=== PATIENT | female | born 1950 | race Caucasian/White ===

== ENCOUNTER → 2021-04-23 12:36 | Outpatient (CLI) | payer MEDICARE, SELFPAY ==
--- NOTE | 2021-04-23 13:00 | MRI_ITS ---
STUDY: MRI THORACIC SPINE WITHOUT CONTRAST REASON FOR EXAM: Female, 70 years old. Age related osteoperosis w/ pathologic fx TECHNIQUE: Standardized fat and water weighted pulse sequences were obtained in the sagittal and axial planes. COMPARISON: MRI of the lumbar spine dated April 23, 2021 FINDINGS: An acute compression fracture of the T12 vertebral body is present with 50-60% loss of height and mild retropulsion. Diffuse edema is present throughout the vertebral body. Mild edema is also seen in the bilateral pedicles. No additional acute abnormalities are seen. There is a vertebral plana deformity from a prior compression fracture of the L1 vertebral body which is lost significant height and also with a prominent retropulsion resulting in mild central canal stenosis at this level. The thoracic kyphosis is exaggerated. T1-2, T2-3, T3-4, T4-5, T5-6, T6-7, T7-8, T8-9, T9-10, T10-11, T11-12: Mild multilevel disc space narrowing and disc desiccation. The disc spaces are preserved in the upper aspect of the thoracic spine. Slight retrolisthesis of T11 on T12 of 3 mm. Normal central canal and intervertebral neural foramina at the corresponding levels. Normal visualized thoracic cord. Normal conus medullaris that terminates at the T12-L1 level. The soft tissue structures are unremarkable. MRI/Spine Thoracic (Routine) IMPRESSION: 1. An acute compression fracture of the T12 vertebral body is present with 50-60% loss of height and mild retropulsion. Diffuse edema is present throughout the vertebral body. Mild edema is also seen in the bilateral pedicles. 2. No additional acute abnormalities are seen. 3. There is a vertebral plana deformity from a prior compression fracture of the L1 vertebral body which is lost significant height and also with a prominent retropulsion resulting in mild central canal stenosis at this level. Electronically Signed: Itz Barajas MD at 23:35 EDT , Service support ,
--- NOTE | 2021-04-23 13:45 | MRI_ITS ---
STUDY: MRI LUMBAR SPINE WITHOUT CONTRAST REASON FOR EXAM: Female, 70 years old. Osteoporosis, age related pathological fx TECHNIQUE: Standardized fat and water weighted pulse sequences were obtained in the sagittal and axial planes. COMPARISON: None FINDINGS: An acute compression fracture of the T12 vertebral body is present with 50-60% loss of height and mild retropulsion. Diffuse edema is present throughout the vertebral body. Mild edema is also seen in the bilateral pedicles. No additional acute abnormalities are seen. There is a vertebral plana deformity from a prior compression fracture of the L1 vertebral body which is lost significant height and also with a prominent retropulsion resulting in mild central canal stenosis at this level. Normal lumbar lordosis. There is no substantial scoliosis. Normal conus medullaris that terminates at the T12-L1 level. L1-2: Normal endplates. Normal disc height, hydration and morphology. Normal bilateral facet joints. Normal central canal and bilateral lateral recesses. Normal bilateral intervertebral neural foramina. L2-3: Normal endplates. Mild disc desiccation. Normal disc height and morphology. Normal bilateral facet joints. Normal central canal and bilateral lateral recesses. Normal bilateral intervertebral neural foramina. L3-4: Normal endplates. Mild disc desiccation and minimal disc space narrowing without bulging or herniation. Normal bilateral facet joints. Normal central canal and bilateral lateral recesses. Normal bilateral intervertebral neural foramina. L4-5: Normal endplates. Mild disc desiccation is present. Normal disc height and morphology. Normal bilateral facet joints. Normal central canal and bilateral lateral recesses. Normal bilateral intervertebral neural foramina. L5-S1: Normal endplates. Normal disc height, hydration and morphology. Normal bilateral facet joints. Normal central canal and bilateral lateral recesses. Normal bilateral intervertebral neural foramina. Normal visualized sacral ala. There is mild paraspinal muscular atrophy. MRI/Spine Lumbar (Routine) IMPRESSION: 1. An acute compression fracture of the T12 vertebral body is present with 50-60% loss of height and mild retropulsion. Diffuse edema is present throughout the vertebral body. Mild edema is also seen in the bilateral pedicles. 2. No additional acute abnormalities are seen. 3. There is a vertebral plana deformity from a prior compression fracture of the L1 vertebral body which is lost significant height and also with a prominent retropulsion resulting in mild central canal stenosis at this level. Electronically Signed: Itz Barajas MD at 23:27 EDT , Service support ,
== END ==
PROVIDERS: Referring Provider Orthopaedic Surgery; Visit Provider Orthopaedic Surgery
DX: M80.08XA Age-related osteoporosis with current pathological fracture, vertebra(e), initial encounter for fracture (principal)
CPT/HCPCS: 72146; 72148

== ENCOUNTER 2021-04-28 01:36 | Emergency (ER) | payer MEDICARE, SELFPAY ==
[2021-04-28 01:37] VITALS: BP 123/61; PULSE 86; RESP 16; TEMP 36.1; O2SAT 98; BMI 16.2
--- NOTE | 2021-04-28 01:48 | CT_ITS ---
STUDY: CT ABDOMEN AND PELVIS WITHOUT CONTRAST REASON FOR EXAM: Female, 70 years old. Flank pain RADIATION DOSAGE (If Supplied By Facility): CTDIvol = ( 6.04 ) mGy, DLP = ( 243.08 ) mGycm TECHNIQUE: Transaxial images were obtained from the dome of the diaphragm to the symphysis pubis without oral contrast, and without intravenous contrast. Sagittal and coronal images were reconstructed. Individualized dose optimization techniques were used for this CT. COMPARISON: None. FINDINGS: Atelectasis versus scar formation at the posterior right lung base. The visualized portions of the heart are within normal limits. Normal liver. Normal gallbladder and extrahepatic biliary system. Normal spleen. Normal pancreas. Normal bilateral adrenal glands. Normal right kidney. Normal left kidney. Normal bilateral ureters. Normal visualized stomach. Normal small intestine. Sigmoid colonic diverticulosis with no evidence of acute diverticulitis.. The appendix is visualized and appears normal. Normal abdominal aorta. Normal inferior vena cava. Normal retroperitoneum. No free air or free fluid. Normal urinary bladder. Uterus is surgically absent. Normal abdominal wall. Compression fracture deformities of T12 and L1 with near vertebral plana and retropulsion noted at L1 and effectively narrows the spinal canal, unchanged CT/Abdomen/Pelvis without Cont IMPRESSION: 1. No acute intra-abdominal abnormality. 2. Sigmoid colonic diverticulosis with no colitis. Electronically Signed: Thony Lopez MD at 3:06 EDT Tel , Service support ,
[2021-04-28] MEDS: Ondansetron 4 MG/2 ML Vial IV (02:05)
[2021-04-28] MEDS: Ketorolac 15 MG/ML Vial IV (02:05)
[2021-04-28] MEDS: fentaNYL 100 MCG/2 ML Ampul 12.5 MCG IV (02:05)
[2021-04-28 02:23] LABS: Absolute Lymphocyte Count 3.12 X10^3/uL (0.83-4.51); Absolute Neutrophil Count 11.5 X10^3/uL (2.0-7.7); Basophil# 0.08 X10^3/uL; Basophil% 0.5 % (0-1); Eosinophil# 0.28 X10^3/uL; Eosinophils% 1.7 % (0-5); Hematocrit 42.1 % (37-47); Hemoglobin 13.9 g/dL (12.0-15.0); Lymphocyte # 3.12 X10^3/ul (0.83-4.51); Lymphocyte % 19.3 % (19-41); Mean Corpuscular Hgb 33.5 pg (27.0-32.0); Mean Corpuscular Volume 101.4 fL (81-99); Mean Platelet Vol. 10.4 fl (6.2-12.0); Monocyte# 1.08 X10^3/uL; Monocyte% 6.7 % (0-10); NRBC Flagged by Analyzer 0 % (0-5); Neutrophil # 11.52 X10^3/uL (2.7-7.7); Neutrophil % 71.1 % (47-70); Platelet Count 289 K/mm3 (150-450); RBC Distribution Width CV 12.5 % (11.6-14.6); Red Blood Count 4.15 M/mm3 (4.2-5.4); White Blood Count 16.2 K/mm3 (4.4-11.0)
[2021-04-28 02:38] LABS: Anion Gap 4 (5-15); BUN 11 mg/dL (7-18); BUN/Creat Ratio 18.3 RATIO (10-20); Calcium,Total 9.5 mg/dL (8.5-10.1); Chloride 103 mmol/L (98-107); EST Glomerular Filtration Rate 105 mL/min (>60); Est Glom Filt Rate - Afr Amer 127 mL/min (>60); Estimated Creatinine Clearance 33.39 ml/min; Glucose 114 mg/dL (74-106); Potassium 3.5 mmol/L (3.5-5.1); Sodium Level 136 mmol/L (136-145)
[2021-04-28 03:09] LABS: Mucous, Urine 0 SEEN /hpf (<or=2+); Red Blood Cells-Urine 0 SEEN /hpf (0-5); Squamous Epithelial Cells - UA 0 SEEN /hpf (5-10)
[2021-04-28 03:10] LABS: Glucose, Dipstick Normal (Normal); Ketone-Dipstick 50 mg/dl (Negative); Leukocyte Esterase-Dipstick 500 /ul (Negative); Nitrite-Dipstick Positive (Negative); Occult Blood-Urine 150 /ul (Negative); Protein-Dipstick 15 mg/dl (Negative); Urine Bilirubin Dipstick Negative (Negative); Urine Urobilinogen 1 mg/dl (Normal)
[2021-04-28 03:16] LABS: Color, Urine Yellow (Yellow); Urine Clarity Clear (Clear)
[2021-04-28 03:19] LABS: Bacteria 1+ /hpf (None Seen); Calcium Oxalate Crystals Ur 1+ /hpf (<or=2+); Hyaline Cast 0-5 SEEN /lpf (0-5); White Blood Cells 10-25 SEEN /hpf (0-5)
--- NOTE | 2021-04-28 03:38 | EDS_ITS ---
HPI History of Present Illness Chief Complaint: Back Informant: patient and spouse/S.O. Onset/Context/Timing Onset: Yesterday Context: Gradual Onset Current Severity: Moderate Maximum Severity: Moderate Narrative Narrative: Patient presents with back pain. When describing her area of pain she points to the left CVA region and states this pain just started yesterday. It is sharp in nature. Patient has had some midline back pain ongoing since March 19. She had an MRI performed on April 23. I was able to review these results and she does have evidence of an acute compression fracture of T12. Patient has been taking ibuprofen at home for pain. She denies nausea or vomiting. No urinary symptoms. No fever or chills. [facility] Medical History Back fracture Chronic pain Home Medications sulfamethoxazole-trimethoprim [Bactrim DS] 1 tab PO BID #20 tab 04/28/21 [Rx Last Taken Unknown] Allergy/AdvReac Type Severity Reaction Status Date / Time No Known Allergies Allergy Verified 04/28/21 01:40 Social History Smoking Status: Former smoker ROS ROS ED Constitutional Constitutional ED: Denies chills or fever(s) Eyes Eyes: Denies change in vision ENT ENT ED: Denies sore throat Cardiovascular Cardiovascular: Denies chest pain Respiratory/Chest Respiratory/Chest: Denies cough or dyspnea Gastrointestinal Gastrointestinal: Denies abdominal pain, diarrhea, nausea or vomiting Genitourinary Genitourinary ED: Denies dysuria or hematuria Musculoskeletal Musculoskeletal: Reports back pain Integumentary Denies rash Neurologic Neurologic: Denies headache(s) or weakness Psychiatric Psychiatric: Denies anxiety or depression Allergic/Immunologic Allergic/Immunologic ED: Denies urticaria EXAM Physical Exam Const Vital Signs: 04/28/21 01:37 Temperature 96.9 F L Temperature Source Temporal Pulse Rate 86 Respiratory Rate 16 Blood Pressure 123/61 H Blood Pressure Mean 81 Pulse Ox 98 Oxygen Delivery Method Room Air Positive well nourished and well developed General Appearance ED: well developed HEENT Reports normocephalic and head/scalp atraumatic Eyes PERRL and EOMs intact bilaterally Neck supple Chest Wall inspection of chest normal and palpation of chest normal Resp normal respiratory effort and clear to auscultation bilaterally Cardio regular rate and regular rhythm GI normal to inspection, nondistended, normoactive bowel sounds Palpation: soft Back/Spine Back/Spine Narrative: Minimal midline tenderness. No overlying skin change. General Back: CVA tenderness left Extremity normal to inspection Neuro oriented x3 and no sensory deficits noted Sensorium / Orientation: alert Motor Exam: strength 5/5 throughout Psych mental status grossly normal Skin no rashes or lesions noted MDM MDM MDM Narrative Medical decision making narrative: With the patient having no acute pain over the left kidney work-up was initiated. She was given Toradol, Zofran, fentanyl. Labs, urinalysis, CT flank obtained. Lab Data Attestation: I reviewed the patient's lab results. Labs: Laboratory Results - last 24 hr 04/28/21 04/28/21 04/28/21 02:07 02:07 03:00 WBC 16.2 H RBC 4.15 L Hgb 13.9 Hct 42.1 MCV 101.4 H MCH 33.5 H MCHC 33.0 RDW Std Deviation 47.0 H RDW Coeff of Saurabh 12.5 Plt Count 289 MPV 10.4 Immature Gran % (Auto) 0.700 Neut % (Auto) 71.1 H Lymph % (Auto) 19.3 [place] % (Auto) 6.7 Eos % (Auto) 1.7 Baso % (Auto) 0.5 Absolute Neuts (auto) 11.5 H Absolute Lymphs (auto) 3.12 Nucleated RBC % 0 Sodium 136 Potassium 3.5 Chloride 103 Carbon Dioxide 29.0 Anion Gap 4 L BUN 11 Creatinine 0.60 Estim Creat Clear Calc 33.39 Est GFR (MDRD) Af Amer 127 Est GFR (MDRD) Non-Af 105 BUN/Creatinine Ratio 18.3 Glucose 114 H Calcium 9.5 Urine Color Yellow Urine Clarity Clear Urine pH 5.0 Ur Specific Thayer 1.030 Urine Protein 15 H Urine Glucose (UA) Normal Urine Ketones 50 H Urine Occult Blood 150 H Urine Nitrite Positive H Urine Bilirubin Negative Urine Urobilinogen 1 H Ur Leukocyte Esterase 500 H Urine RBC 0 SEEN Urine WBC 10-25 SEEN Ur Squamous Epith Cells 0 SEEN Calcium Oxalate Crystal 1+ Urine Bacteria 1+ Hyaline Casts 0-5 SEEN Urine Mucus 0 SEEN Radiography Diagnostic Testing: Radiology Impression Abdomen/Pelvis CT 04/28/21 01:48 IMPRESSION: 1. No acute intra-abdominal abnormality. 2. Sigmoid colonic diverticulosis with no colitis. Electronically Signed: Thony oLpez MD at 3:06 EDT Tel , Service support , Treatment and Re-Evaluation Comments:: On repeat evaluation patient does note some improvement in her pain. Test results discussed with her. CT flank is unremarkable. Patient does have evidence of UTI and with her having pain over the left kidney I am concerned that she has developed pyelonephritis. Urine culture has been sent and she will be treated with a 10-day course of Bactrim, first dose given here. She has hydrocodone at home to use for pain. She was encouraged to call her orthopedic surgeon in [place] who had ordered her MRI to discuss those test results and need for further treatment. Discharge Plan Triage Chief Complaint: Back ED Provider: Nan Robison Dx/Rx/DC Orders Clinical Impression: T12 compression fracture, Pyelonephritis Instructions: ED Fracture, Vertebral Compression, ED Pyelonephritis, Female (Adult) Prescriptions: New sulfamethoxazole-trimethoprim [Bactrim DS] 800-160 mg tablet 1 tab PO BID Qty: 20 RF: 0 Primary Care Provider: Care Physician,No Primary Referrals: Care Physician,No Primary [Primary Care Provider] - Activity Restrictions/Additional Instructions: As discussed, follow-up with your orthopedic surgeon in [place] regarding your MRI findings. Disposition Disposition: Home, Self Care Discharge Date/Time: 04/28/21 03:55
[2021-04-28] MEDS: Smz/Tmp Ds Tablet 1 TABLET PO (03:54)
== END 2021-04-28 03:55 | disposition home or self-care (01) ==
PROVIDERS: Emergency Provider Emergency Medicine
DX: M48.54XA Collapsed vertebra, not elsewhere classified, thoracic region, initial encounter for fracture (principal); N12 Tubulo-interstitial nephritis, not specified as acute or chronic; G89.29 Other chronic pain; Z87.891 Personal history of nicotine dependence
CPT/HCPCS: 74176; 80048; 81001; 85025; 87086; 87088; 87186; 96374; 96375; 99282; A4216; J2405

== ENCOUNTER → 2021-05-28 10:34 | Outpatient (CLI) | payer MEDICARE, SELFPAY ==
--- NOTE | 2021-05-28 10:48 | BD_ITS ---
STUDY: DUAL ENERGY X-RAY ABSORPTIOMETRY / DXA REASON FOR EXAM: Female, 70 years old. WEDGE COMPRESSION FX TECHNIQUE: Bone Mineral Density (BMD) measurements of lumbar spine and bilateral hips were obtained. COMPARISON: None. FINDINGS: Lumbar Spine (L1-L4): g/cm2 (0.471) / T-score (-5.7) / Z-score (-3.5) Findings are suggestive of osteoporosis with a high fracture risk. Left Femur Total: g/cm2 (0.458) / T-score (-4.0) / Z-score (-2.4) Left Femoral Neck: g/cm2 (0.353) / T-score (-4.5) / Z-score (-2.6) Right Femur Total: g/cm2 (0.433) / T-score (-4.2) / Z-score (-2.6) Right Femoral Neck: g/cm2 (0.459) / T-score (-3.5) / Z-score (-1.7) BD/Dexa Bone Density Study IMPRESSION: The patient is considered osteoporotic as outlined below according to World Adrian Organization (WHO) criteria with a high fracture risk. Reference Information: The T-score is the number of standard deviations above or below the standard which is normal for young adults at their peak bone mineral density. The World Health Organization (WHO) interprets the T-scores as follows: Above -1 Normal bone density Between -1 and -2.5 Osteopenia Equal to / or below -2.5 Osteoporosis As a practical clinical guideline, osteopenia may be graded as follows: Mild -1 through -1.5 Moderate -1.6 through -2.0 Severe -2.1 through -2.4 The Z-score is the number of standard deviations above or below age-matched controls. A Z-score of less than -1.5 would be considered abnormal. References: 1. NIH Osteoporosis and Related Bone Diseases www osteo.org 2. International Society for Clinical Densitometry www iscd.org 3. National Osteoporosis Foundation www nof.org Electronically Signed: Almas Fraga MD at 15:44 EDT , Service support ,
== END ==
PROVIDERS: Referring Provider Orthopaedic Surgery; Visit Provider Orthopaedic Surgery
DX: M80.08XA Age-related osteoporosis with current pathological fracture, vertebra(e), initial encounter for fracture (principal); S22.080S Wedge compression fracture of T11-T12 vertebra, sequela
CPT/HCPCS: 77080

== ENCOUNTER → 2021-06-29 11:47 | Outpatient (CLI) | payer MEDICARE, SELFPAY ==
[2021-06-29 14:37] LABS: Absolute Lymphocyte Count 1.89 X10^3/uL (0.83-4.51); Absolute Neutrophil Count 10.8 X10^3/uL (2.0-7.7); Basophil% 0.7 % (0-1); Eosinophil# 0.06 X10^3/uL; Eosinophils% 0.4 % (0-5); Hematocrit 46.5 % (37-47); Hemoglobin 15.1 g/dL (12.0-15.0); Lymphocyte # 1.89 X10^3/ul (0.83-4.51); Lymphocyte % 13.4 % (19-41); Mean Corp Hgb Conc 32.5 g/dL (32-36); Mean Corpuscular Hgb 33.8 pg (27.0-32.0); Mean Platelet Vol. 10.5 fl (6.2-12.0); Monocyte# 1.13 X10^3/uL; NRBC Flagged by Analyzer 0 % (0-5); Neutrophil # 10.83 X10^3/uL (2.7-7.7); Neutrophil % 77.1 % (47-70); Platelet Count 332 K/mm3 (150-450); RBC Distribution Width CV 13.2 % (11.6-14.6); RBC Distribution Width SD 51.5 fl (35.1-43.9); Red Blood Count 4.47 M/mm3 (4.2-5.4); White Blood Count 14.1 K/mm3 (4.4-11.0)
[2021-06-29 14:56] LABS: AST(SGOT) 51 U/L (15-37); Alanine Aminotransfer ALT/SGPT 72 U/L (13-56); Albumin, Serum 3.9 g/dL (3.2-5.0); Alkaline Phosphatase 150 U/L (45-117); Anion Gap 6 (5-15); BUN 14 mg/dL (7-18); Calcium,Total 10.3 mg/dL (8.5-10.1); Chloride 102 mmol/L (98-107); Cholesterol 276 mg/dL (200); Creatinine, Serum 0.94 mg/dL (0.55-1.02); EST Glomerular Filtration Rate 63 mL/min (>60); Est Glom Filt Rate - Afr Amer 76 mL/min (>60); Free T3 3.2 pg/mL (2.18-3.98); Globulin 3.9 g/dL (2.2-4.2); Glucose 79 mg/dL (74-106); High Density Lipoprotein 60 mg/dL; Potassium 4.1 mmol/L (3.5-5.1); Protein, Total 7.8 g/dL (6.4-8.2); Sodium Level 137 mmol/L (136-145); Thyroid Stim Hormone (TSH) 3.81 uIU/mL (0.358-3.74); Triglycerides 135 mg/dL; Very Low Density Lipoprotein 27 mg/dL (5-40)
[2021-06-29 15:04] LABS: Vitamin D,25 Hydroxy 45.6 ng/mL
== END ==
PROVIDERS: Visit Provider Internal Medicine
DX: E78.5 Hyperlipidemia, unspecified (principal); R63.4 Abnormal weight loss; M81.0 Age-related osteoporosis without current pathological fracture; S22.080A Wedge compression fracture of T11-T12 vertebra, initial encounter for closed fracture
CPT/HCPCS: 36415; 80053; 80061; 82306; 84439; 84443; 84481; 85025

== ENCOUNTER → 2021-07-01 15:19 | Outpatient (CLI) | payer MEDICARE, SELFPAY ==
[2021-07-01 17:13] LABS: Vitamin B12 490 pg/mL (211-911)
[2021-07-02 08:33] LABS: PTHIN 42.6 pg/mL (18.4-80.1)
== END ==
PROVIDERS: PCP Internal Medicine; Referring Provider Internal Medicine; Visit Provider Internal Medicine
DX: S32.010A Wedge compression fracture of first lumbar vertebra, initial encounter for closed fracture (principal); X58.XXXA Exposure to other specified factors, initial encounter; Y93.9 Activity, unspecified; Y92.9 Unspecified place or not applicable; Y99.9 Unspecified external cause status; Q78.2 Osteopetrosis; R71.8 Other abnormality of red blood cells
CPT/HCPCS: 36415; 82607; 82746; 83970

== ENCOUNTER → 2021-07-10 10:36 | Outpatient (CLI) | payer MEDICARE, SELFPAY ==
--- NOTE | 2021-07-10 10:37 | US_ITS ---
STUDY: ABDOMINAL ULTRASOUND - RIGHT UPPER QUADRANT REASON FOR VISIT: Female, 70 years old Elevated LFTs. TECHNIQUE: Ultrasound evaluation of the right upper quadrant was performed with real-time and static malik-scale imaging. TECHNICAL QUALITY: Adequate. COMPARISON: None. FINDINGS: Liver: The liver measures 15.9 cm. There is a heterogeneous echogenicity of the liver. The bile ducts are within normal limits. There is hepatic color flow. The direction of portal flow is hepatopetal. There is no demonstrated mass lesion. Gallbladder: Normal distended gallbladder. The gallbladder wall measures 2 mm. There is a negative sonographic Mosqueda''s sign. There is no pericholecystic fluid. There are no gallstones. Common Bile Duct (C.B.D.): The common bile duct measures 5 mm. Pancreas: Normal size of the head, body and tail of the pancreas. There is normal echogenicity of the pancreas. There is no demonstrated pancreatic mass or cyst. Right Kidney: Normal size of the right kidney. The right kidney measures 9.4 cm x 4.6 cm x 3.4 cm. Normal renal cortex. The right cortex measures 1 cm. There is no demonstrated renal mass or cyst. There is no right hydronephrosis. US/Liver IMPRESSION: Heterogeneous echotexture of the hepatic parenchyma. Electronically Signed: Almas Fraga MD at 13:52 EDT , Service support ,
== END ==
PROVIDERS: PCP Internal Medicine; Referring Provider Internal Medicine; Visit Provider Internal Medicine
DX: R79.89 Other specified abnormal findings of blood chemistry (principal)
CPT/HCPCS: 76705

== ENCOUNTER → 2021-07-29 15:33 | Outpatient (CLI) | payer MEDICARE, SELFPAY ==
--- NOTE | 2021-07-29 15:35 | RAD_ITS ---
History: Weight loss, long-term smoker EXAMINATION/TECHNIQUE: XR Chest 2 Views: COMPARISON: None FINDINGS: LINES/DEVICES: None. LUNGS: Lungs appear hyperinflated but clear. No pneumothorax. MEDIASTINUM AND CARDIOVASCULAR STRUCTURES: Cardiac silhouette not enlarged. Central airways and mediastinal contour are unremarkable. BONES AND SOFT TISSUES: Bony structures are osteoporotic. Prominent compression deformities of T12 and L1 noted. T11 vertebral body now also appears to be compressed appearing normal on the prior CT abdomen study of April 28, 2021. RAD/Chest PA and Lateral IMPRESSION: COPD. Chronic vertebral body compression deformities. Question subacute fracture of T11. at 1628 Reported and signed by: Juan Goodrich MD Electronically Signed: Juan Goodrich MD at 16:27 EST Tel , Service support ,
[2021-07-29 17:57] LABS: Absolute Neutrophil Count 8.6 X10^3/uL (2.0-7.7); Basophil# 0.11 X10^3/uL; Basophil% 0.8 % (0-1); Eosinophil# 0.19 X10^3/uL; Eosinophils% 1.4 % (0-5); Hematocrit 45.4 % (37-47); Hemoglobin 14.8 g/dL (12.0-15.0); Lymphocyte % 26.5 % (19-41); Mean Corp Hgb Conc 32.6 g/dL (32-36); Mean Corpuscular Hgb 33.8 pg (27.0-32.0); Mean Corpuscular Volume 103.7 fL (81-99); Mean Platelet Vol. 10.4 fl (6.2-12.0); Monocyte# 0.79 X10^3/uL; NRBC Flagged by Analyzer 0 % (0-5); Neutrophil # 8.56 X10^3/uL (2.7-7.7); Neutrophil % 64.8 % (47-70); Platelet Count 367 K/mm3 (150-450); RBC Distribution Width CV 12.4 % (11.6-14.6); RBC Distribution Width SD 47.8 fl (35.1-43.9); Red Blood Count 4.38 M/mm3 (4.2-5.4); White Blood Count 13.2 K/mm3 (4.4-11.0)
[2021-07-29 18:58] LABS: ALB/GLOB Ratio 0.9 RATIO (0.9-2.4); AST(SGOT) 48 U/L (15-37); Alanine Aminotransfer ALT/SGPT 52 U/L (13-56); Albumin, Serum 3.7 g/dL (3.2-5.0); Alkaline Phosphatase 140 U/L (45-117); Anion Gap 6 (5-15); BUN 13 mg/dL (7-18); BUN/Creat Ratio 14.4 RATIO (10-20); Calcium,Total 9.8 mg/dL (8.5-10.1); Chloride 104 mmol/L (98-107); EST Glomerular Filtration Rate 65 mL/min (>60); Est Glom Filt Rate - Afr Amer 79 mL/min (>60); Globulin 4.1 g/dL (2.2-4.2); Glucose 130 mg/dL (74-106); Potassium 3.8 mmol/L (3.5-5.1); Protein, Total 7.8 g/dL (6.4-8.2); Sodium Level 137 mmol/L (136-145)
== END ==
PROVIDERS: PCP Internal Medicine; Visit Provider Internal Medicine
DX: R71.8 Other abnormality of red blood cells (principal); R63.4 Abnormal weight loss; Q78.2 Osteopetrosis; R79.89 Other specified abnormal findings of blood chemistry
CPT/HCPCS: 36415; 71046; 80053; 82746; 85025

== ENCOUNTER → 2021-08-19 14:22 | Outpatient (CLI) | payer MEDICARE, SELFPAY ==
--- NOTE | 2021-08-19 14:36 | CT_ITS ---
EXAM: CT MAXILLOFACIAL SINUSES WITHOUT INTRAVENOUS CONTRAST CLINICAL INDICATION: CHRONIC SINUSITIS TECHNIQUE: Helically acquired images were obtained of the maxillofacial sinuses without intravenous contrast. This CT exam was performed using one or more of the following dose reduction techniques: automated exposure control, adjustment of the mA and/or kV according to patient size, and/or use of iterative reconstruction technique. This report was created using [employer] report generation technology. COMPARISON: None. FINDINGS: MAXILLARY SINUSES: Minimal maxillary sinus disease. Bilateral mastoid air cell disease. Ostiomeatal complexes are normally formed. SPHENOID SINUSES: Clear. FRONTAL SINUSES: Clear. ETHMOID AIR CELLS: Clear. NASAL CAVITY/SEPTUM: Nasal septum is midline. Nasal turbinates are unremarkable. BONES/JOINTS: Degenerative changes of the mandibular condyles. VASCULATURE: There are atherosclerotic vascular calcifications. ORBITS: Unremarkable. DENTAL: Unremarkable as visualized. No periodontal osseous erosion. CT/Sinus/Facial Bone IMPRESSION: Minimal maxillary sinus disease. Bilateral mastoid air cell disease. Electronically Signed: Irving Sharif MD at 15:04 EST , Service support ,
== END ==
PROVIDERS: PCP Internal Medicine; Visit Provider Otolaryngology
DX: J32.9 Chronic sinusitis, unspecified (principal)
CPT/HCPCS: 70486

== ENCOUNTER → 2021-09-16 | Outpatient (CLI) | payer MEDICARE, SELFPAY | END | disposition home or self-care (01) | PROVIDERS: PCP Internal Medicine; Visit Provider Otolaryngology | DX: Z11.59 Encounter for screening for other viral diseases (principal); Z03.818 Encounter for observation for suspected exposure to other biological agents ruled out | CPT/HCPCS: 87635; U0005; U0003 ==

== ENCOUNTER 2021-09-29 14:28 | Outpatient (CLI) | payer MEDICARE, SELFPAY ==
[2021-09-29 14:34] VITALS: BP 116/43; PULSE 79; RESP 16; TEMP 36.7; O2SAT 100
[2021-09-29] MEDS: DENOSUMAB 60 MG/ML SC (14:40)
== END 2021-09-29 23:59 | disposition short-term general hospital (02) ==
LOC: MEDOUTP 14:29
PROVIDERS: PCP Internal Medicine; Referring Provider Internal Medicine Endocrinology, Diabetes & Metabolism; Visit Provider Internal Medicine Endocrinology, Diabetes & Metabolism
DX: M81.0 Age-related osteoporosis without current pathological fracture (principal)
CPT/HCPCS: 96372; J0897

== ENCOUNTER → 2022-03-30 | Outpatient (CLI) | payer MEDICARE, SELFPAY ==
[2022-03-30] MEDS: DENOSUMAB 60 MG/ML SC (15:04)
[2022-03-30 15:07] VITALS: BP 115/62; PULSE 78; RESP 16; TEMP 36.2; O2SAT 98
== END | disposition home or self-care (01) ==
PROVIDERS: PCP Internal Medicine; Referring Provider Internal Medicine Endocrinology, Diabetes & Metabolism; Visit Provider Internal Medicine Endocrinology, Diabetes & Metabolism
DX: M81.0 Age-related osteoporosis without current pathological fracture (principal)
CPT/HCPCS: 96372; J0897

== ENCOUNTER → 2022-09-28 | Outpatient (CLI) | payer MEDICARE, SELFPAY ==
[2022-09-28 14:48] VITALS: BMI 17.5
[2022-09-28 14:49] LABS: Absolute Lymphocyte Count 3.79 X10^3/uL (0.83-4.51); Absolute Neutrophil Count 7.1 X10^3/uL (2.0-7.7); Basophil# 0.08 X10^3/uL; Basophil% 0.7 % (0-1); Eosinophil# 0.18 X10^3/uL; Eosinophils% 1.5 % (0-5); Hematocrit 43.1 % (37-47); Hemoglobin 14.1 g/dL (12.0-15.0); Lymphocyte # 3.79 X10^3/ul (0.83-4.51); Lymphocyte % 31.1 % (19-41); Mean Corp Hgb Conc 32.7 g/dL (32-36); Mean Corpuscular Hgb 33.6 pg (27.0-32.0); Mean Corpuscular Volume 102.6 fL (81-99); Mean Platelet Vol. 9.8 fl (6.2-12.0); Monocyte# 0.97 X10^3/uL; NRBC Flagged by Analyzer 0 % (0-5); Neutrophil # 7.09 X10^3/uL (2.7-7.7); Neutrophil % 58.2 % (47-70); Platelet Count 342 K/mm3 (150-450); RBC Distribution Width CV 12.6 % (11.6-14.6); RBC Distribution Width SD 47.8 fl (35.1-43.9); White Blood Count 12.2 K/mm3 (4.4-11.0)
[2022-09-28] MEDS: DENOSUMAB 60 MG/ML SC (14:52)
[2022-09-28 14:55] VITALS: BP 106/64; PULSE 70; RESP 14; TEMP 36.3; O2SAT 97
[2022-09-28 15:20] LABS: Vitamin D,25 Hydroxy 67.8 ng/mL
[2022-09-28 15:26] LABS: AST(SGOT) 18 U/L (15-37); Alanine Aminotransfer ALT/SGPT 22 U/L (13-56); Albumin, Serum 3.6 g/dL (3.2-5.0); Alkaline Phosphatase 85 U/L (45-117); Anion Gap 3 (5-15); BUN 13 mg/dL (7-18); BUN/Creat Ratio 18.7 RATIO (10-20); Calcium,Total 9.4 mg/dL (8.5-10.1); Chloride 106 mmol/L (98-107); Cholesterol 253 mg/dL (200); EST Glomerular Filtration Rate 88 mL/min (>60); Est Glom Filt Rate - Afr Amer 107 mL/min (>60); Estimated Creatinine Clearance 32.15 ml/min; Globulin 3.6 g/dL (2.2-4.2); Glucose 99 mg/dL (74-106); High Density Lipoprotein 63 mg/dL; Potassium 3.5 mmol/L (3.5-5.1); Protein, Total 7.2 g/dL (6.4-8.2); Sodium Level 140 mmol/L (136-145); Triglycerides 132 mg/dL; Very Low Density Lipoprotein 26 mg/dL (5-40)
== END | disposition home or self-care (01) ==
PROVIDERS: PCP Internal Medicine; Referring Provider Internal Medicine Endocrinology, Diabetes & Metabolism; Visit Provider Internal Medicine Endocrinology, Diabetes & Metabolism
DX: M81.0 Age-related osteoporosis without current pathological fracture (principal); R71.8 Other abnormality of red blood cells; R79.89 Other specified abnormal findings of blood chemistry; R00.0 Tachycardia, unspecified; E55.9 Vitamin D deficiency, unspecified
CPT/HCPCS: 36415; 80053; 80061; 82306; 84443; 85025; 96372; J0897

== ENCOUNTER → 2022-11-24 | Outpatient (CLI) | payer MEDICARE, SELFPAY ==
--- NOTE | 2022-11-24 14:50 | RAD_ITS ---
EXAM: XR THORACIC SPINE, 3 VIEWS CLINICAL INDICATION: M51.34 TECHNIQUE: Frontal, lateral and swimmer''s views of the thoracic spine. This report was created using [employer] report generation technology. COMPARISON: MRI of the thoracic spine May 13, 2021, there was severe compression deformity of L1 and moderate compression deformity of T12 with bone marrow edema in T12. Normal vertebral body height at T11. FINDINGS: VERTEBRAE: Severe compression deformity of L1 appears stable. Moderate compression deformity of T12 appears similar in height. New moderate compression deformity of T11 compared to April 23, 2021, suspected to be at least subacute with some sclerosis in the body. Accentuated kyphosis of the thoracic spine appears similar. No spondylolisthesis. No significant facet arthropathy. No obviously acute-appearing fracture line. DISC SPACES: Unremarkable. Disc spaces are maintained. RAD/Thoracic Spine 3 Views IMPRESSION: 1. Chronic-appearing compression deformities at T12 and L1, confirmed to be old on comparison to MRI 2000. 2. Newly present but at least subacute to chronic-appearing compression deformity of T11. Electronically Signed: Lillian Nagel MD at 8:07 EST ,
== END | disposition home or self-care (01) ==
LOC: RAD 14:45
PROVIDERS: PCP Internal Medicine; Referring Provider Anesthesiology Pain Medicine; Visit Provider Anesthesiology Pain Medicine
DX: M51.34 Other intervertebral disc degeneration, thoracic region (principal)
CPT/HCPCS: 72072

== ENCOUNTER 2023-03-01 11:12 | Emergency (ER) | payer MEDICARE, SELFPAY ==
[2023-03-01 11:13] VITALS: BP 135/81; PULSE 88; RESP 16; TEMP 36.7; O2SAT 95
[2023-03-01 11:23] VITALS: BMI 17.8
[2023-03-01] MEDS: Mag Hydrox/Al Hydrox/Simeth 30 ML UDC PO (12:01)
[2023-03-01 12:10] LABS: Absolute Lymphocyte Count 1.81 X10^3/uL (0.83-4.51); Absolute Neutrophil Count 13.6 X10^3/uL (2.0-7.7); Basophil# 0.07 X10^3/uL; Basophil% 0.4 % (0-1); Eosinophil# 0.08 X10^3/uL; Eosinophils% 0.5 % (0-5); Hematocrit 45.3 % (37-47); Hemoglobin 15.1 g/dL (12.0-15.0); Lymphocyte # 1.81 X10^3/ul (0.83-4.51); Lymphocyte % 11.1 % (19-41); Mean Corp Hgb Conc 33.3 g/dL (32-36); Mean Corpuscular Hgb 34.2 pg (27.0-32.0); Mean Corpuscular Volume 102.5 fL (81-99); Monocyte# 0.74 X10^3/uL; Monocyte% 4.5 % (0-10); NRBC Flagged by Analyzer 0 % (0-5); Neutrophil # 13.55 X10^3/uL (2.7-7.7); Neutrophil % 82.8 % (47-70); Platelet Count 320 K/mm3 (150-450); RBC Distribution Width CV 12.8 % (11.6-14.6); RBC Distribution Width SD 48.8 fl (35.1-43.9); Red Blood Count 4.42 M/mm3 (4.2-5.4); White Blood Count 16.4 K/mm3 (4.4-11.0)
[2023-03-01 12:21] LABS: Anion Gap 5 (5-15); BUN 20 mg/dL (7-18); BUN/Creat Ratio 25.1 RATIO (10-20); Chloride 108 mmol/L (98-107); EST Glomerular Filtration Rate 75 mL/min (>60); Est Glom Filt Rate - Afr Amer 91 mL/min (>60); Glucose 120 mg/dL (74-106); Potassium 4.1 mmol/L (3.5-5.1); Sodium Level 140 mmol/L (136-145)
[2023-03-01] MEDS: Famotidine 200 MG/20 ML MDV 20 MG in 0.9% Normal Saline (Pres. free 8 ML 300 MG IV (12:48)
--- NOTE | 2023-03-01 13:13 | EDS_ITS ---
HPI History of Present Illness Chief Complaint: Weakness Detail of Chief Complaint: Generalized weakness with intermittent epigastric burning pain for 2 months Informant: patient and spouse/S.O. Onset/Context/Timing Onset: Month(s) Context: Sudden Onset Timing: Intermittent Quality: Burning Location: Epigastrium Current Severity: Mild Maximum Severity: Severe Worsened by: Nothing specific Relieved by: Nothing Associated Symptoms Associated Symptoms: Dark-colored stool she states it was black a week or 2 ago Narrative Narrative: Patient is a 72-year-old woman with history of elevated liver enzymes, osteoporosis, compression fracture T12, pyelonephritis who presents with epigastric burning sensation that is been intermittent for the past 2 months. She reported dark-colored stool 1 to 2 weeks ago. Upon further questioning she states it was black. She denies hematemesis or coffee-ground emesis. She is on no medicine for GERD, hiatal hernia or reflux. She states she has no history of any of those. She denies headache, visual, ocular auditory symptoms. She denies chest pain. She denies dyspnea or dyspnea on exertion, PND or orthopnea. She denies history of PE. She denies leg pain, swelling discoloration. She denies fever, chills night sweats. She denies weight gain or weight loss. Prior similar symptoms: No Recent Illness/Hospitalization: No PFSH PFSH Medical History Back fracture Body mass index (BMI) less than 16.5 Chronic pain History of stroke Osteoporosis Home Medications denosumab 60 mg/mL subcutaneous syringe 60 mg subcut [id number] #1 mL 09/14/22 [Rx Last Taken Unknown] omeprazole 40 mg capsule,delayed release 40 mg PO DAILY #30 caps 03/01/23 [Rx Last Taken Unknown] Allergy/AdvReac Type Severity Reaction Status Date / Time No Known Allergies Allergy Verified 03/01/23 11:15 Family History Father Heart disease Mother Diabetes Cancer Grandmother Diabetes Other Osteoporosis Social History Smoking Status: Former smoker alcohol intake: never substance use type: does not use what type of physical activity do you participate in: walking ROS ROS ED Constitutional Constitutional ED: Denies chills, fever(s), subjective, sweats or weight loss Eyes Eyes: Denies blurry vision, change in vision or diplopia ENT ENT ED: Denies ear pain, rhinorrhea or sore throat Cardiovascular Cardiovascular: Denies chest pain, orthopnea, palpitations or paroxysmal nocturnal dyspnea Respiratory/Chest Respiratory/Chest: Denies cough, dyspnea, dyspnea on exertion, orthopnea or paroxysmal nocturnal dyspnea Gastrointestinal Gastrointestinal: Reports abdominal pain, melena and nausea; Denies constipation, diarrhea or vomiting Genitourinary Genitourinary ED: Denies dysuria, hematuria or urinary frequency Musculoskeletal Musculoskeletal: Denies arthralgias, back pain, myalgias or neck pain Integumentary Denies rash Neurologic Neurologic: Reports weakness; Denies headache(s) or paresthesias Psychiatric Psychiatric: Reports anxiety; Denies depression Endocrine Endocrinology: Denies cold intolerance Hematologic/Lymphatic Hematologic/Lymphatic: Reports systems reviewed and no addt'l complaints, except as documented EXAM Physical Exam Const Vital Signs: 03/01/23 11:13 03/01/23 11:24 03/01/23 14:25 Temperature 98.1 F Temperature Source Temporal Pulse Rate 88 66 Respiratory Rate 16 19 H Respiratory Effort Normal Non-Labored Respiratory Pattern Normal Blood Pressure 135/81 H 144/71 H Blood Pressure Mean 99 95 Pulse Ox 95 97 Oxygen Delivery Method Room Air Room Air Positive well nourished and well developed Constitutional Narrative: Patient has a depressed affect. General Appearance ED: well developed; Negative for cyanotic, diaphoretic, NAD or pallor HEENT Reports dry mucous membranes HEENT Narrative: Head is atraumatic normocephalic. Ears are normal. Nares are patent. Posterior for normal. Mouth ED: Yes dry mucous membranes Mouth: dry mucous membranes Eyes PERRL and EOMs intact bilaterally General Eye ED: Negative for pale conjunctiva or scleral icterus Neck no lymphadenopathy, supple and no JVD Chest Wall inspection of chest normal and palpation of chest normal Resp normal respiratory effort and clear to auscultation bilaterally Cardio regular rate, regular rhythm, S1 normal heart sound, S2 normal heart sound and no murmurs GI normal to inspection, nondistended, normoactive bowel sounds, non-distended and no masses; Negative for non-tender or hepatosplenomegaly GI Narrative: There is pain outpatient the epigastric area. Back/Spine no CVA tenderness Back/Spine Narrative: Inspection is normal. Extremity normal to inspection General Extremety ED: Negative for edema or tenderness General Extremity: Negative for edema Neuro oriented x3, CN's II-XII intact bilaterally and no sensory deficits noted Sensorium / Orientation: alert Psych Psych Narrative: Mood is flat and affect is depressed. Skin no rashes or lesions noted, no wounds and skin turgor normal General Skin Exam: Negative for elasticity normal, jaundice or pallor MDM MDM MDM Narrative Medical decision making narrative: Patient with epigastric pain. Stool does appear dark but not black. Stool was sent for Hemoccult test. CBC was obtained assess H&H platelet count. BMP to assess BUN to creatinine ratio as well as electrolytes. Patient was treated with IV Pepcid and GI cocktail. Lab Data Attestation: I reviewed the patient's lab results. Lab results narrative: White count is elevated 16.4 which is nonspecific. H&H 15 1 and 45.3. Electrolyte profile is unremarkable with an elevated BUN to creatinine ratio. Stool was Hemoccult positive. Glucose elevated 120 with normal CO2 anion gap. Labs: Laboratory Results - last 24 hr 03/01/23 03/01/23 11:53 11:53 WBC 16.4 H RBC 4.42 Hgb 15.1 H Hct 45.3 MCV 102.5 H MCH 34.2 H MCHC 33.3 RDW Std Deviation 48.8 H RDW Coeff of Saurabh 12.8 Plt Count 320 MPV 10.0 Immature Gran % (Auto) 0.700 Neut % (Auto) 82.8 H Lymph % (Auto) 11.1 L [place] % (Auto) 4.5 Eos % (Auto) 0.5 Baso % (Auto) 0.4 Absolute Neuts (auto) 13.6 H Absolute Lymphs (auto) 1.81 Nucleated RBC % 0 Sodium 140 Potassium 4.1 Chloride 108 H Carbon Dioxide 27.0 Anion Gap 5 BUN 20 H Creatinine 0.80 Estim Creat Clear Calc 42.90 Est GFR (MDRD) Af Amer 91 Est GFR (MDRD) Non-Af 75 BUN/Creatinine Ratio 25.1 H Glucose 120 H Calcium 9.0 Treatment and Re-Evaluation :: Patient was treated with GI cocktail and IV Pepcid. She had marked improvement. Patient was referred to Dr. Perez who is on-call for GI. She was told she may have gastritis versus ulcer versus esophagitis. She was discharged with prescription for omeprazole. Discharge Plan Triage Chief Complaint: Weakness ED Provider: Selene Goinso Dx/Rx/DC Orders Clinical Impression: Acute epigastric pain, Occult blood in stools Instructions: ED Upper GI Bleeding (Stable), ED Epigastric Pain Uncertain Cause Prescriptions: New omeprazole 40 mg capsule,delayed release(DR/EC) 40 mg PO DAILY Qty: 30 0RF No Action denosumab 60 mg/mL syringe 60 mg subcut [id number] Qty: 1 1RF Primary Care Provider: Ragini Moran Referrals: Ragini Moran MD [Primary Care Provider] - Nick Perez DO [Med Staff - Active Staff] - 1-2 Weeks Activity Restrictions/Additional Instructions: If you have CharcoAid black stool or maroon-colored stool return to the emergency department Disposition Disposition: Home, Self Care
--- NOTE | 2023-03-01 13:54 | CM.ED ---
Social Work SW introduced self and role to patient and spouse. SW discussed Advance Directives with patient. Pt reports they have HCPOA and Living Will documents but not with them. SW requested documents to be brought to hospital for medical record when able. Karen Gaines MSW, DIRECTOR HEART
[2023-03-01 14:25] VITALS: BP 144/71; PULSE 66; RESP 19; O2SAT 97
[2023-03-01 15:16] VITALS: BP 138/74; PULSE 62; RESP 16; O2SAT 98
== END 2023-03-01 15:17 | disposition home or self-care (01) ==
PROVIDERS: Emergency Provider Emergency Medicine; PCP Internal Medicine; Visit Provider Emergency Medicine
DX: R10.13 Epigastric pain (principal); R19.5 Other fecal abnormalities; R53.1 Weakness; Z87.891 Personal history of nicotine dependence; Z86.73 Personal history of transient ischemic attack (TIA), and cerebral infarction without residual deficits
CPT/HCPCS: 80048; 82274; 85025; 96374; 99283; A4216; J3490

== ENCOUNTER 2023-03-29 14:31 | Outpatient (CLI) | payer MEDICARE, SELFPAY ==
[2023-03-29 14:49] VITALS: BP 126/77; PULSE 75; RESP 16; O2SAT 100; BMI 16.9
[2023-03-29] MEDS: DENOSUMAB 60 MG/ML SC (14:52)
== END 2023-03-29 14:32 | disposition home or self-care (01) ==
LOC: MEDOUTP 14:31
PROVIDERS: PCP Internal Medicine; Referring Provider Internal Medicine Endocrinology, Diabetes & Metabolism; Visit Provider Internal Medicine Endocrinology, Diabetes & Metabolism
DX: M81.0 Age-related osteoporosis without current pathological fracture (principal)
CPT/HCPCS: 96372; J0897

== ENCOUNTER 2023-06-21 12:07 | Day surgery (SDC) | payer MEDICARE, SELFPAY ==
[2023-06-21] VITALS (9 sets, daily range): BP systolic 78–103; BP diastolic 37–56; PULSE 63–74; RESP 15–16; TEMP 36.1–36.4; O2SAT 92–100; BMI 16.7
[2023-06-21] MEDS: Lactated Ringers 1,000 ML 15 ML IV (12:44)
--- NOTE | 2023-06-21 13:15 | EGD_PTH ---
PATIENT: JUDI CRAVEN LOC: EN U#:[id number] AGE/SX: 72/F ROOM: RE06/21/[address]: Dr. Nick Perez DO : 1950 BED: DIS: 06/21/2023 SPEC #: [id number] RECD: 06/21/23 15:03 STATUS: GERALDO ALEXANDER #: [id number] BERNADETTE: 06/21/23 13:[address]: Nick Perez DEPT: SURGICAL PATHOLOGY RECD BY: Harris Mendoza ENTERED: 06/22/23 10:49 SP TYPE: EGD BIOPSY FREYA DR: Dr. Ragini Moran MD Tissues: A - Duodenum, NOS B - Duodenum, NOS C - Esophagus, NOS Procedures: Special Stain Group II Surgery Specimen Level IV Alcian Blue/PAS (control) HEADER OPERATION: EGD with biopsies PRE-OP DIAGNOSIS: Abdominal pain TISSUE SUBMITTED: A - Duodenum biopsy, B - Duodenum mass biopsy, C - Distal esophagus biopsy MICROSCOPIC DIAGNOSIS A. Duodenum, biopsy: Minimal nonspecific chronic inflammation. B. Duodenal mass, biopsy: Fragments of tubular adenoma. C. Distal esophagus, biopsy: Gastroesophageal junctional mucosa with mild chronic inflammation. No evidence of goblet cell metaplasia. See comment. AM:alejandra 06/23/2023 COMMENT C. Alcian blue/PAS stain with matched control supports the above diagnosis. MICROSCOPIC DESCRIPTION Slides are reviewed. GROSS DESCRIPTION A - Received in fixative is one container labeled with the patient's name and designated duodenum biopsy. The specimen consists of multiple irregular fragments of light wilde soft tissue that in aggregate measure 0.8 x 0.3 x 0.1 cm. The specimen is totally submitted in one cassette. B - Received in fixative is one container labeled with the patient's name and designated duodenum mass biopsy. The specimen consists of multiple irregular fragments of light wilde soft tissue that in aggregate measure 1.0 x 0.3 x 0.1 cm. The specimen is totally submitted in one cassette. C - Received in fixative is one container labeled with the patient's name and designated distal esophagus biopsy. The specimen consists of multiple irregular fragments of light wilde soft tissue that in aggregate measure 0.8 x 0.3 x 0.1 cm. The specimen is totally submitted in one cassette. / JOSE:alejandra 06/22/2023 TC:3 CPT: 04445 x3, 72317
--- NOTE | 2023-06-21 14:16 | PCM.HP.BLA ---
History and Physical Date of Admission: 06/21/23 72 F who presents to the office today for a consult. PMH elevated LFT, weight loss, pyelonephritis, osteoporosis.? [facility] ED 6. with epigastric burning for two months with recent black stools. Workup without acute concern and symptoms improved with GI cocktail and IV Pepcid. Discharged home with omeprazole 40mg QD.?Biochemical?CBC (hgb15.1), CMP without pertinent abnormality.? Started on pantoprazole 40 mg QD due to capsule size of omeprazole. States that she noticed relief with the pantoprazole. Denies any burning in esophagus. States bloating has decreased since starting the pantoprazole. States that she still has some bloating, belching, and epigastric burning. States that she still has some dark stools. Complains of some fatigue. Denies any nausea. Denies any shortness of breath. ROS Const Constitutional: Positive for fatigue; No fever(s), frequent falls, headache(s) or weight change ENT ENT: No headache(s) or difficulty swallowing Cardio Cardiology: No leg pain with exertion Gastro GI: Positive for belching, bloating and Black,tarry stools; No abdominal pain, change in bowel habits, constipation, diarrhea, heartburn, difficulty swallowing, Vomiting blood/hematemesis, Blood in stool, nausea/dyspepsia or vomiting Musc Musculoskeletal: No abnormal gait, joint pain, back pain, joint swelling, muscle cramps, muscle weakness, numbness, stiffness, tingling, Arthritis, sciatica, leg pain at night or leg pain with exertion Skin Skin: No dry skin, lesions, itchy eyes or rash Neuro Neurology: No abnormal gait, dizziness, frequent falls, headache(s), numbness, tingling, tremor(s), Increased tone in limbs, paralysis or seizures Psych Psychiatric: No anxiety, No depression, No paranoia, No Behavioral Problems, No Compulsive Behavior, No hyperactivity, No inattentiveness, No obsessions/compulsions, No Temper Tantrums and No suicidal ideation Endo Endocrine: Positive for fatigue; No weight change Aller/Imm Allergy/Immunologic: No itchy eyes Juno/Lymp Hematologic/Lymphatic: No easy bleeding or easy bruising Exam Const General: cooperative, healthy appearing, comfortable, no acute distress, well developed, not cushingoid and frail appearing Nutritional Appearance: underweight Orientation: alert, awake and oriented x3 HENMT Head: normal to inspection Ears: hearing grossly normal bilaterally Nose: external nose normal Mouth: oral mucosae normal Eyes General: appearance normal, both eyes and all related structures Alignment and Position: alignment normal Periorbital: periorbital findings normal Eyelids: eyelids normal Conjunctivae: conjunctivae normal Neck Neck: normal visual inspection Neck mass: No Thyroid: thyroid normal Chest Chest palpation & inspection: normal inspection of the chest Resp Effort & Inspection: normal respiratory effort, able to speak in complete sentences, symmetric chest movement, no audible wheezes and no cough Auscultation: Bilateral: Clear to Auscultation Cardio Rate: regular rate Rhythm: regular rhythm GI Inspection: normal to inspection Skin General: other (papular rash over entire back, no cellulitis) Neuro General: patient alert, patient awake and patient oriented x3 Cranial Nerves: CN's II-XI intact bilaterally Cognition: normal cognition Speech: speech normal Gait: normal gait Motor: muscle tone normal throughout Psych Appearance: grossly normal Mental Status: mental status grossly normal Mood: congruent mood Affect: normal affect Speech and Movement: speech and movement normal Attitude: cooperative Thought Process: normal Thought Content: normal Judgment: judgment good Quality Reporting Tobacco Screening ([facility] 138) Smoking Status: Former smoker Assessment and Plan Assessment and Plan (1) Abdominal pain: Status: Acute Qualifiers: Abdominal location: epigastric Qualified Code(s): R10.13 - Epigastric pain Plan: 73-year-old who presented to the ED with worsening abdominal pain and dark stools. She has a past medical history of severe osteoporosis on Prolia therapy. She also takes vitamin D. She does not take any NSAIDs. She says that she had a history of gastric ulcer in the past but she does not know where it was from. She also has a past medical history TIA is not on aspirin therapy. She went to the ED and was diagnosed with gastritis and possible gastric ulcer. She was placed on PPI therapy. She could not get down omeprazole so she was switched to pantoprazole which she took for approximately 6 weeks. Her abdominal pain is a lot better. However her appetite has not returned and she is down to 90 pounds. Her BMI is 16. She denies any chest pain or shortness of breath. Differential diagnosis does include peptic ulcer disease, eosinophilic gastroenteritis in the setting of esophageal dysphagia which could be eosinophilic esophagitis, H. pylori associated gastritis, bile induced gastritis. She should undergo an upper endoscopy to evaluate upper GI tract. Do not recommend any PPI therapy at this time due to the fact that she does have severe osteoporosis. She also has a new fracture at T11 from her recent x-ray. She is being followed by pain management and orthopedic surgery. I have examined the patient and the H&P has been reviewed. There are no clinical changes since date of exam.
--- NOTE | 2023-06-21 14:42 | OP.CCLET_ITS ---
06/21/2023 Ragini Moran [facility] [address] [place] [address] Re : Upper GI endoscopy procedure for Mia Alexshayy Dear Dr. Moran This procedure was performed on Wednesday, June 21, 2023. My impressions and recommendations are as follows: Impressions : - Non-severe reflux esophagitis with no bleeding. Biopsied. - Moderate Schatzki ring. Dilated. - Abnormal esophageal motility. - Small hiatal hernia. - Likely benign duodenal mass. Biopsied. Recommendations : - Discharge patient to home. - Resume previous diet. - Continue present medications. - Await pathology results. My findings are described in the full procedure note, which is enclosed. If I can be of further assistance, please feel free to contact me at . Sincerely, Nick Perez, 06/21/2023 2:41:50 PM This report has been signed electronically.
--- NOTE | 2023-06-21 14:42 | OP.EGD_ITS ---
Patient Name: Mia Eason Procedure Date: 06/21/2023 2:11 PM Date of : 1950 Age: 72 Procedure: Upper GI endoscopy Indications: Functional Dyspepsia, Dysphagia Providers: Nick Perez DO Referring MD: Ragini Moran Medicines: Monitored Anesthesia Care Patient Profile: This is a 72 year old female. Refer to note in patient chart for documentation of history and physical. Patient has symptoms of acute abdominal distention, acute epigastric abdominal pain and dysphagia with both liquids and solids. Complications: No immediate complications. Procedure: Pre-Anesthesia Assessment: - Prior to the procedure, a History and Physical was performed, and patient medications and allergies were reviewed. The patient is competent. The risks and benefits of the procedure and the sedation options and risks were discussed with the patient. All questions were answered and informed consent was obtained. Patient identification and proposed procedure were verified by the physician in the pre-procedure area. Mental Status Examination: alert and oriented. Airway Examination: normal oropharyngeal airway and neck mobility. Respiratory Examination: clear to auscultation. CV Examination: normal. Prophylactic Antibiotics: The patient does not require prophylactic antibiotics. Prior Anticoagulants: The patient has taken no anticoagulant or antiplatelet agents. ASA Grade Assessment: II - A patient with mild systemic disease. After reviewing the risks and benefits, the patient was deemed in satisfactory condition to undergo the procedure. The anesthesia plan was to use monitored anesthesia care (MAC). Immediately prior to administration of medications, the patient was re-assessed for adequacy to receive sedatives. The heart rate, respiratory rate, oxygen saturations, blood pressure, adequacy of pulmonary ventilation, and response to care were monitored throughout the procedure. The physical status of the patient was re-assessed after the procedure. After obtaining informed consent, the endoscope was passed under direct vision. Throughout the procedure, the patient's blood pressure, pulse, and oxygen saturations were monitored continuously. The gastroscope was introduced through the mouth, and advanced to the second part of duodenum. The upper GI endoscopy was accomplished without difficulty. The patient tolerated the procedure well. Scope In: 2:21:05 PM Scope Out: 2:26:43 PM Total Procedure Duration Time 0 hours 5 minutes 38 seconds Findings: Non-severe esophagitis with no bleeding was found 37 to 38 cm from the incisors. Biopsies were taken with a cold forceps for histology. Verification of patient identification for the specimen was done. Estimated blood loss was minimal. A moderate Schatzki ring was found in the lower third of the esophagus. A guidewire was placed and the scope was withdrawn. Dilation was performed with a Savary dilator with no resistance at 45 Fr. The dilation site was examined and showed moderate mucosal disruption. Estimated blood loss was minimal. Abnormal motility was noted in the upper third of the esophagus, in the middle third of the esophagus and in the lower third of the esophagus. The cricopharyngeus was abnormal. There is a decrease in motility of the esophageal body. The distal esophagus/lower esophageal sphincter is patulous. Tertiary peristaltic waves are noted. A small hiatal hernia was present. No other significant abnormalities were identified in a careful examination of the stomach. A medium-sized polypoid mass with no bleeding was found in the first portion of the duodenum. Biopsies were taken with a cold forceps for histology. Verification of patient identification for the specimen was done. Estimated blood loss was minimal. Impression: - Non-severe reflux esophagitis with no bleeding. Biopsied. - Moderate Schatzki ring. Dilated. - Abnormal esophageal motility. - Small hiatal hernia. - Likely benign duodenal mass. Biopsied. Recommendation: - Discharge patient to home. - Resume previous diet. - Continue present medications. - Await pathology results. Procedure Code(s): --- Professional --- 21649, Esophagogastroduodenoscopy, flexible, transoral; with insertion of guide wire followed by passage of dilator(s) through esophagus over guide wire 32820, 59,51, Esophagogastroduodenoscopy, flexible, transoral; with biopsy, single or multiple CPT copyright 2021 [employer]. All rights reserved. The codes documented in this report are preliminary and upon cardiovascular surgeon review may be revised to meet current compliance requirements. Nick Perez DO 06/21/2023 2:41:50 PM This report has been signed electronically. Number of Addenda: 0 Note Initiated On: 06/21/2023 2:11 PM
== END 2023-06-21 15:49 | disposition home or self-care (01) ==
LOC: EN 12:09 → AC 12:10
PROVIDERS: PCP Internal Medicine; Referring Provider Internal Medicine; Visit Provider Internal Medicine Gastroenterology
PROC: 0DJ08ZZ Inspection of Upper Intestinal Tract, Via Natural or Artificial Opening Endoscopic (ICD-10-PCS; CPT 43235; principal; 2023-06-21 13:10)
DX: D13.2 Benign neoplasm of duodenum (principal); K44.9 Diaphragmatic hernia without obstruction or gangrene; K21.00 Gastro-esophageal reflux disease with esophagitis, without bleeding; Z87.891 Personal history of nicotine dependence; K22.2 Esophageal obstruction; K29.80 Duodenitis without bleeding
CPT/HCPCS: 43248; 43239; 88305; 88313; J7120; J2405

== ENCOUNTER → 2023-07-12 | Outpatient (CLI) | payer MEDICARE, SELFPAY ==
--- NOTE | 2023-07-12 14:34 | RAD_ITS ---
STUDY: X-RAY CHEST REASON FOR EXAM: Female, 72 years old. Fatigue, fever TECHNIQUE: PA and lateral views of the chest. COMPARISON: Comparison is made with prior examination dated July 29, 2021. FINDINGS: There is hyperinflation of the lungs consistent with chronic obstructive lung disease (COPD). There is no demonstrated pleural abnormality. Normal size heart. Normal mediastinum and dayana. Normal visualized pulmonary arteries. There is atherosclerotic calcification of the aortic arch with tortuosity. There is demineralization of the osseous structures. Increased kyphosis. Almost complete collapse of the T12 vertebrae. 50% loss of height of the T10, and T11 vertebrae. Normal visualized ribs, clavicles, and shoulders. There is no demonstrated abnormality of the visualized soft tissue structures of the upper abdomen. RAD/Chest PA and Lateral IMPRESSION: Hyperinflation. Loss of height of the dorsal vertebrae as described with increased kyphosis. Electronically Signed: Almas Fraga MD at 15:13 EDT ,
== END | disposition home or self-care (01) ==
LOC: MTRAD 14:34
PROVIDERS: PCP Internal Medicine; Referring Provider Physician Assistant; Visit Provider Physician Assistant
DX: R50.9 Fever, unspecified (principal); R53.83 Other fatigue
CPT/HCPCS: 71046

== ENCOUNTER → 2023-09-21 | Outpatient (CLI) | payer MEDICARE, SELFPAY ==
--- NOTE | 2023-09-21 16:40 | RAD_ITS ---
STUDY: X-RAY - MANDIBLE (COMPLETE) REASON FOR EXAM: Female, 72 years old. jaw pain TECHNIQUE: 6 view(s) of the mandible were obtained. COMPARISON: None. FINDINGS: Normal mandible. Normal visualized right temporomandibular joint. Normal visualized left temporomandibular joint. The remaining visualized osseous structures are normal. The soft tissue structures are unremarkable. RAD/Mandible Less Than 4 Views IMPRESSION: Normal x-ray examination of the mandible. Electronically Signed: Chucky Enamorado MD at 19:08 EST ,
[2023-09-21 17:11] LABS: Absolute Lymphocyte Count 2.44 X10^3/uL (0.83-4.51); Absolute Neutrophil Count 8.5 X10^3/uL (2.0-7.7); Basophil# 0.12 X10^3/uL; Eosinophil# 0.15 X10^3/uL; Eosinophils% 1.2 % (0-5); Hematocrit 45.3 % (37-47); Hemoglobin 14.9 g/dL (12.0-15.0); Lymphocyte # 2.44 X10^3/ul (0.83-4.51); Lymphocyte % 20.1 % (19-41); Mean Corp Hgb Conc 32.9 g/dL (32-36); Mean Corpuscular Hgb 33.5 pg (27.0-32.0); Mean Corpuscular Volume 101.8 fL (81-99); Mean Platelet Vol. 10.3 fl (6.2-12.0); Monocyte# 0.85 X10^3/uL; NRBC Flagged by Analyzer 0 % (0-5); Platelet Count 359 K/mm3 (150-450); RBC Distribution Width SD 49.1 fl (35.1-43.9); Red Blood Count 4.45 M/mm3 (4.2-5.4); White Blood Count 12.1 K/mm3 (4.4-11.0)
[2023-09-21 17:47] LABS: Vitamin D,25 Hydroxy 82.3 ng/mL
[2023-09-21 17:52] LABS: ALB/GLOB Ratio 1.1 RATIO (0.9-2.4); AST(SGOT) 33 U/L (15-37); Alanine Aminotransfer ALT/SGPT 30 U/L (13-56); Albumin, Serum 3.7 g/dL (3.2-5.0); Alkaline Phosphatase 95 U/L (45-117); Anion Gap 7 (5-15); BUN 12 mg/dL (7-18); Calcium,Total 9.4 mg/dL (8.5-10.1); Chloride 104 mmol/L (98-107); EST Glomerular Filtration Rate 75 mL/min (>60); Est Glom Filt Rate - Afr Amer 91 mL/min (>60); Free T3 3.2 pg/mL (2.18-3.98); Globulin 3.5 g/dL (2.2-4.2); Glucose 105 mg/dL (74-106); Magnesium 2.3 mg/dL (1.6-2.6); Potassium 4.4 mmol/L (3.5-5.1); Protein, Total 7.2 g/dL (6.4-8.2); Sodium Level 139 mmol/L (136-145); T4 Free Direct 1.19 ng/dL (0.76-1.46)
== END | disposition home or self-care (01) ==
PROVIDERS: PCP Internal Medicine; Visit Provider Internal Medicine
DX: R00.0 Tachycardia, unspecified (principal); R53.83 Other fatigue; M81.0 Age-related osteoporosis without current pathological fracture; Z86.73 Personal history of transient ischemic attack (TIA), and cerebral infarction without residual deficits; R71.8 Other abnormality of red blood cells; E55.9 Vitamin D deficiency, unspecified; R68.84 Jaw pain
CPT/HCPCS: 36415; 70100; 80053; 82306; 83735; 84439; 84443; 84481; 85025

== ENCOUNTER 2023-10-04 13:20 | Outpatient (CLI) | payer MEDICARE, SELFPAY ==
[2023-10-04 13:45] VITALS: BP 124/70; PULSE 91; RESP 16; TEMP 36.7; O2SAT 98; BMI 16.9
[2023-10-04] MEDS: DENOSUMAB 60 MG/ML SC (13:46)
== END 2023-10-04 13:21 | disposition home or self-care (01) ==
LOC: MEDOUTP 13:21
PROVIDERS: PCP Internal Medicine; Referring Provider Internal Medicine Endocrinology, Diabetes & Metabolism; Visit Provider Internal Medicine Endocrinology, Diabetes & Metabolism
DX: M81.0 Age-related osteoporosis without current pathological fracture (principal)
CPT/HCPCS: 96372; J0897

== ENCOUNTER 2024-03-26 13:24 | Emergency (ER) | payer MEDICARE, SELFPAY ==
[2024-03-26 13:24] VITALS: BP 104/59; PULSE 110; RESP 18; TEMP 36.6; O2SAT 93; BMI 16.4
--- NOTE | 2024-03-26 14:44 | EDS_ITS ---
HPI History of Present Illness Chief Complaint: Back PFSH PFSH Medical History Arthritis Back fracture Back pain Body mass index (BMI) less than 16.5 Chronic pain Cough in adult Emesis Fatigue Former smoker History of GI bleed History of stroke Injury of back Jaw pain Osteoporosis Post-menopausal Urinary tract infection with hematuria Wears glasses Home Medications ?Medication ?Instructions ?Recorded ?Last Taken ?Type cholecalciferol (vitamin D3) 25 25 mcg PO DAILY 06/20/23 Unknown History mcg (1,000 unit) capsule (Vitamin D3) famotidine 40 mg tablet 40 mg PO BID 30 days #60 tabs 06/27/23 Unknown Rx denosumab 60 mg/mL subcutaneous 60 mg subcut [id number] #1 mL 09/15/23 Unknown Rx syringe oxycodone 5 mg capsule 5 mg PO Q6H PRN pain 3 days #12 03/26/24 Unknown Rx caps Allergy/AdvReac Type Severity Reaction Status Date / Time No Known Allergies Allergy Verified 03/26/24 13:24 Family History Father Heart disease Mother Diabetes Cancer Grandmother Diabetes Other Osteoporosis Social History Smoking Status: Light Smoker (<10/day) alcohol intake: never substance use type: does not use what type of physical activity do you participate in: walking EXAM Physical Exam Const Vital Signs: 03/26/24 13:24 03/26/24 17:00 03/26/24 18:37 Temperature 97.8 F 98.1 F Temperature Source Temporal Pulse Rate 110 H 81 88 Respiratory Rate 18 18 18 Blood Pressure 104/59 L 129/59 H 129/59 H Blood Pressure Mean 74 82 82 Pulse Ox 93 99 98 Oxygen Delivery Method Room Air MDM MDM MDM Narrative Medical decision making narrative: HISTORY OF PRESENT ILLNESS: 73-year-old female presents with back pain. Notes history of back fracture. Notes she is been moving out of her house. She notes low back pain for last 3 days. Notes she is been moving out of her house. No she has been lifting and doing activity more than usual. Denies any falls or car accidents. My back pain red flag REVIEW OF SYSTEMS: Pertinent positives: Low back pain Pertinent negatives: Urinary tension, bowel bladder incontinence, lower extremity weakness. PHYSICAL EXAM: Nursing triage notes reviewed, Vital signs reviewed Constitutional: please see [facility] HENT: MMM Eyes: Pupils equal round and reactive to light, Extraocular muscles intact Neck: No stridor, no JVD, full neck ROM Lungs: Clear to auscultation, No wheezing or rales. No increased work of breathing, no conversational dyspnea, no accessory muscle use, no nasal flaring. No respiratory distress noted Heart: Regular rate and rhythm, No murmurs, No rubs and No gallops, 2+ distal pulses (radial, femoral, posterior tibial) in all extremities Abdomen: Soft, there is no tenderness, rigidity, rebound or guarding, no obvious peritoneal signs, no palpable pulsatile abdominal masses, no auscultated abdominal bruit : No CVAT Extremities: No edema Back: No midline step-offs or deformities noted TTP over thoracolumbar junction Neuro: Intact sensation L1-S1 dermatomal distributions. Intact 5/5 strength in hip flexion (T12-L3). Knee extension (L2-L4). Ankle dorsiflexion (L4-L5). A nkle plantar flexion (S1). Great toe extension (L5). 2+ patellar and Achilles DTRs. Skin: No rash or lesions noted MEDICAL DECISION MAKING: Chief Complaint: Back pain External records reviewed: MRI of the lumbar spine from 2020 shows Imaging reviewed: T12 compression fracture, Factors affecting care: T12 compression fracture, osteoporosis Social determinants of health: Elderly History obtained from others: none Consults: none [facility] Narrative: Patient was initially tachycardic (resolved after pain medication) otherwise hemodynamically stable afebrile and nontoxic-appearing. Exam without focal lower extremity neurologic deficits or obvious step-offs or deformities. I considered the following differential diagnosis: Lumbar or thoracic spine fracture, dislocation, musculoskeletal injury, space-occupying spine (epidural abscess, mass) I obtained a CT scan of the thoracic and lumbar spine ALL IMAGES (IF OBTAINED) HAVE BEEN PERSONALLY REVIEWED AND INTERPRETED BY MYSELF. CT scan of the thoracic and lumbar spine showed evidence of mild compression of T6 and T11, severe compression of T7, T12 and L1 Patient was reassessed after oral pain medication. No sign improvement. No new lower extremity focal neurologic deficits. Given compression fractures are stable she is appropriate discharge home with close outpatient orthopedic follow-up. Strict return precautions were discussed. Pain medications were written. The patient and/or family, caregivers express understanding. The patient and/or family, caregivers agrees with the plan. Shared decision making: I will have a discussion with the patient and or visitors regarding risk/benefits of further testing or admission. They will be made aware of of the risk/benefits inherent in this decision they will be given the opportunity to voice understanding. Total critical care time today provided was at least 0 minutes. This excludes separately billable procedures. Critical care time (if documented) is secondary to the patient having high probability of clinically significant/life threatening deterioration in the patient's condition which required my urgent intervention. Impression: 1. Acute low back pain 2. Thoracic compression fracture 3. Lumbar compression fracture Dispo: Discharge home This note was generated with [employer] dictation software. It may contain incorrect words, spelling, and punctuation that were not noted in review of the chart prior to signing. Radiography Diagnostic Testing: Clinical Impression(s) from Imaging Studies Lumbar Spine CT 03/26/24 14:46 IMPRESSION: Moderate to severe old compression of T11-L1 with retropulsion into the spinal canal at T12 and L1. Electronically Signed: Alon Riggins DO at 17:10 EDT , Thoracic Spine CT 03/26/24 14:46 IMPRESSION: Vertebral compressions as noted, increasing at T7. Electronically Signed: Alon Riggins DO at 17:02 EDT , Discharge Plan Triage Chief Complaint: Back ED Provider: Ruperto Jacques Dx/Rx/DC Orders Clinical Impression: Compression fracture of L1 lumbar vertebra, T12 compression fracture Instructions: Compression Fx Prescriptions: New oxycodone 5 mg capsule 5 mg PO Q6H PRN (Reason: pain) 3 Days Qty: 12 0RF No Action denosumab 60 mg/mL syringe 60 mg subcut [id number] Qty: 1 1RF cholecalciferol (vitamin D3) [Vitamin D3] 25 mcg (1,000 unit) capsule 25 mcg PO DAILY famotidine 40 mg tablet 40 mg PO BID 30 Days Qty: 60 11RF Primary Care Provider: Ragini Moran Referrals: Paulino Benavidez MD [Non-Staff] - Ragini Moran MD [Primary Care Provider] - Activity Restrictions/Additional Instructions: Thank you for trusting us with your care today! Please take Tylenol (2 pills, 650 mg), ibuprofen (2 pills, 400 mg) every 6 hours as needed for pain and fever control. If the above regimen does not control your pain. Please take oxycodone every 6 hours as needed. Please return to the emergency department if your symptoms change or worsen. Specifically if you develop bowel or bladder incontinence, urinary retention, loss of sensation on your primary region, loss of movement or sensation in your legs. Please follow with your Orthopedic spine surgery for further outpatient evaluation and management. Print Language: Slovak Disposition Disposition: Home, Self Care Discharge Date/Time: 03/26/24 18:40
--- NOTE | 2024-03-26 14:46 | CT_ITS ---
STUDY: CT LUMBAR SPINE WITHOUT CONTRAST REASON FOR EXAM: Female, 73 years old. back pain RADIATION DOSAGE (If Supplied By Facility): CTDIvol = ( 9.46 ) mGy, DLP = ( 230.16 ) mGycm TECHNIQUE: The patient was scanned in a multi detector CT scanner. High resolution transaxial imaging was performed. Images were obtained from to . Sagittal and coronal images were reconstructed. Individualized dose optimization techniques were used for this CT. COMPARISON: None FINDINGS: Normal lumbar lordosis. There is no substantial scoliosis. Moderate to severe old compression of T11-L1 with retropulsion into the spinal canal at T12 and L1. L1-2: Normal endplates. Normal disc height and morphology. Normal bilateral facet joints. Old compression of L1 with retropulsion into the central canal and narrowing bilateral intervertebral neural foramina. L2-3: Normal endplates. Normal disc height and morphology. Normal bilateral facet joints. Normal central canal and bilateral lateral recesses. Normal bilateral intervertebral neural foramina. L3-4: Normal endplates. Normal disc height and morphology. Normal bilateral facet joints. Normal central canal and bilateral lateral recesses. Normal bilateral intervertebral neural foramina. L4-5: Normal endplates. Normal disc height with slight annular bulge. Normal bilateral facet joints. Normal central canal and bilateral lateral recesses. Normal bilateral intervertebral neural foramina. L5-S1: Normal endplates. Normal disc height and morphology. Normal bilateral facet joints. Normal central canal and bilateral lateral recesses. Normal bilateral intervertebral neural foramina. Normal visualized paraspinous soft tissue structures. CT/Spine Lumbar without Contrast IMPRESSION: Moderate to severe old compression of T11-L1 with retropulsion into the spinal canal at T12 and L1. Electronically Signed: Alon Riggins DO at 17:10 EDT Reading Location ID and State: [facility] / [place] Tel [phone], Service support ,
--- NOTE | 2024-03-26 14:46 | CT_ITS ---
INDICATION: back pain EXAMINATION: CT THORACIC SPINE - CT Spine Thoracic W/O Contrast Injection TECHNIQUE: Helically acquired images were obtained of the thoracic spine. 2D reformats were reviewed. A radiation dose optimization technique was used for this scan. The protocol utilizes one or more of the following dose reduction techniques: automated exposure control, adjustment of mA and/or kV according to patient size,and/or use of iterative reconstruction technique. IV Contrast dosage and agent: None. RADIATION DOSAGE (If Supplied By Facility): CTDIvol = ( 11.36 ) mGy, DLP = ( 304.64 ) mGycm COMPARISON: November 24, 2022 FINDINGS: VERTEBRAE: Mild compression of T6 and T11. Moderate to severe compression of T7, T12 and L1. No discrete lytic or blastic abnormality observed. VERTEBRAL ALIGNMENT: There is a well and is relatively in in the upper abdomen negative version There is preservation of the normal thoracic kyphosis. DISCS: Disc heights are preserved. VISUALIZED THORAX: Visualized thoracic aorta is nondilated. The lungs are hyperaerated. CT/Spine Thoracic without Contras IMPRESSION: Vertebral compressions as noted, increasing at T7. Electronically Signed: Alon Riggins DO at 17:02 EDT Reading Location ID and State: [facility] / [place] Tel [phone], Service support ,
[2024-03-26] MEDS: Ibuprofen 200 MG Tablet 400 MG PO (14:53)
[2024-03-26] MEDS: oxyCODONE 5 MG Tablet PO (14:54)
[2024-03-26] MEDS: Lidocaine 5% Patch 1 PATCH TOPICAL (14:54)
[2024-03-26 17:00] VITALS: BP 129/59; PULSE 81; RESP 18; O2SAT 99
[2024-03-26 18:37] VITALS: BP 129/59; PULSE 88; RESP 18; TEMP 36.7; O2SAT 98
== END 2024-03-26 18:40 | disposition home or self-care (01) ==
PROVIDERS: Emergency Provider Emergency Medicine; PCP Internal Medicine; Visit Provider Emergency Medicine
DX: M48.54XA Collapsed vertebra, not elsewhere classified, thoracic region, initial encounter for fracture (principal); M48.56XA Collapsed vertebra, not elsewhere classified, lumbar region, initial encounter for fracture; G89.29 Other chronic pain; Z79.899 Other long term (current) drug therapy; F17.200 Nicotine dependence, unspecified, uncomplicated
CPT/HCPCS: 72128; 72131; 99282

== ENCOUNTER 2024-03-30 13:18 | Outpatient (CLI) | payer MEDICARE, SELFPAY ==
[2024-03-30 13:29] VITALS: BP 125/63; PULSE 87; RESP 16; TEMP 36.6; O2SAT 96; BMI 17.6
[2024-03-30] MEDS: DENOSUMAB 60 MG/ML SC (13:32)
== END 2024-03-30 23:59 | disposition home or self-care (01) ==
LOC: MEDOUTP 13:19
PROVIDERS: PCP Internal Medicine; Referring Provider Internal Medicine Endocrinology, Diabetes & Metabolism; Visit Provider Internal Medicine Endocrinology, Diabetes & Metabolism
DX: M81.0 Age-related osteoporosis without current pathological fracture (principal)
CPT/HCPCS: 96372; J0897